=== PATIENT | female | born 1950 | race Caucasian/White ===

== ENCOUNTER 2018-09-20 11:55 | Day surgery (SDC) | payer MEDICARE, BC ==
[~2018-09-20 11:55] MED LIST: ACETAMINOPHEN 1,000 MG/100 ML BTL IV ONE; CEFAZOLIN 2 Gram 2 GM/50 ML BAG IVPB ONE
[2018-09-20] MEDS ORDERED: MORPHINE SULFATE 10 MG/ML VIAL IVP ONE (11:56)
[2018-09-20] MEDS ORDERED: PROPOFOL 10 MG/ML VIAL IV ONE (11:56)
[2018-09-20] MEDS ORDERED: SEVOFLURANE 250 ML INH ONE (11:56)
[2018-09-20] MEDS ORDERED: LIDOCAINE 2% MDV (20MG/ML) 20ML VIAL IV ONE (11:56)
[2018-09-20] MEDS ORDERED: BUPIVACAINE 0.5% W/EPI MPF 30 ML VIAL IVP ONE (11:56)
[2018-09-20] MEDS ORDERED: KETOROLAC 30 MG/ML VIAL IVP ONE (11:56)
[2018-09-20 12:13] LABS: BASO % 0.7 % (0-6); EOS % 1.6 % (0-6); GRAN % 53.2 % (47-80); HEMATOCRIT 45.3 % (35.0-47.0); HEMOGLOBIN 14.9 gm/dl (11.6-16.0); LYMPH % 37.7 % (16-45); MEAN CELL VOLUME 96.2 fl (81-97); MEAN CORPUSCULAR HEMOGLOBIN 31.6 pg (27-33); MEAN CORPUSCULAR HGB CONC 32.9 g/dl (32-36); MEAN PLATELET VOLUME 10.2 fl (7.4-10.4); MONO % 6.8 % (0-9); PLATELET COUNT 277 K/uL (130-400); RED BLOOD COUNT 4.71 M/uL (3.80-5.40); RED CELL DISTRIBUTION WIDTH 13.7 % (11.5-14.5); WHITE BLOOD COUNT W/O DIFF 7.5 K/uL (4.2-12.2)
[2018-09-20 12:26] LABS: BLOOD UREA NITROGEN 16 mg/dL (8-23); CREATININE 0.7 mg/dL (0.5-0.9); EST GLOMERULAR FILTRATION RATE > 60 mL/min
[2018-09-20 12:29] LABS: GLUCOSE,RANDOM 104 mg/dL (74-109)
[2018-09-20] MEDS ORDERED: MORPHINE SULFATE 4 MG/ML VIAL ONE (13:46)
--- NOTE | 2018-09-21 10:10 | Operative Note ---
DATE OF SURGERY: 09/20/2018 PREOPERATIVE DIAGNOSIS: Internal derangement of the right knee. POSTOPERATIVE DIAGNOSES: 1. Small grade 3 chondromalacia of patella. 2. Complex tear of the posterior horn of the medial meniscus. 3. Split tear involving the posterior and lateral horn of the lateral meniscus. OPERATION: 1. Right knee arthroscopy with subtotal medial and lateral meniscectomies. 2. Right knee arthroscopy with chondroplasty of patella. Staff Surgeon: Dale Garduno MD Anesthesia: General. Preparation: Chloraprep. Individual Considerations: None. PROCEDURE: The patient was taken to the operating room and placed supine on the operating room table. The patient had a successful induction with general anesthetic. The right lower extremity was prepped and draped in the usual fashion. The patient had a superolateral inflow cannula placed. Skin was infiltrated with 0.5% Marcaine with epinephrine prior. The knee was then inflated with normal saline. An inferomedial and an inferolateral portal were made in a similar fashion. The arthroscope was introduced through the inferolateral portal up into the pouch. Patellofemoral joint showed small grade 3 changes superiorly which was debrided. No loose bodies were seen in the pouch or either gutter. Medial compartment showed a complex degenerative tear involving the posterior horn of the medial meniscus. This was debrided back to a stable rim with basket forceps and a shaver. The medial and anterior horns were intact. The articular cartilage was intact. In the notch, the cruciate ligaments were normal. Laterally she had an obvious split tear involving the posterior and lateral horn of the lateral meniscus. This was based almost like a small split bucket handle tear. This was debrided back to a stable rim with basket forceps and a shaver. Articular cartilage laterally was intact. The knee was then irrigated out with saline to remove loose floating debris. Portals were closed with pradeep, and 20 mL of 0.25% plain Marcaine along with 4 mg of morphine and 80 mg of Depo-Medrol were injected into the knee. A sterile bulky compressive dressing was applied. The patient tolerated procedure well. Needle and sponge counts were correct. Estimated blood loss was minimal. She was taken back to recovery in good condition. There were no complications. [facility]
== END 2018-09-20 15:37 | disposition home or self-care (01) ==
LOC: SUR 11:55
PROVIDERS: ATTEND Orthopaedic Surgery
DX: S83.241A Other tear of medial meniscus, current injury, right knee, initial encounter (principal); S83.281A Other tear of lateral meniscus, current injury, right knee, initial encounter; M22.41 Chondromalacia patellae, right knee; I10 Essential (primary) hypertension; E11.9 Type 2 diabetes mellitus without complications
CPT/HCPCS: 29880; 01400; 85025; 80048; 36416; 82948; J1885; J0690; J2270 ×2